=== PATIENT | male | born 1945 | race Caucasian/White ===

== ENCOUNTER → 2016-08-03 | Outpatient (CLI) | payer OTHER ==
[~2016-08-03] MED LIST: CLB200 PO; FLV1 PO; HYDC25 PO; MTH25 PO; MULT-506 PO; OXYC-57 PO; POLY335019 PO; PRED-301 PO; PROB1TAB16 PO
== END | disposition home or self-care (01) ==
LOC: C.PATHSPEC 16:39
PROVIDERS: ATTEND Dermatology
DX: C44.310 Basal cell carcinoma of skin of unspecified parts of face (principal)